=== PATIENT | female | born 1960 | race African-American/Black ===

== ENCOUNTER 2020-01-15 14:24 | Observation (INO) | payer MEDICAID ==
[~2020-01-15] VITALS: Ht 160 cm; Wt 108.9 kg
[2020-01-15 14:29] VITALS: BP 178/94
[2020-01-15] MEDS ORDERED: KLOR-CON M2020 MEQ PO (14:38)
[2020-01-15] MEDS ORDERED: HYDROCHLOROTHIA25 M2 PO (14:39)
[2020-01-15] MEDS ORDERED: AMLODIPINE BESY10 MG PO (14:39)
[2020-01-15] MEDS ORDERED: FUROSEMIDE 40 M40 M1 PO (14:39)
[2020-01-15 14:50] LABS: ABSOLUTE BASOPHILS 0.1 thou/uL (0.0-0.2); ABSOLUTE EOSINOPHILS 0.1 thou/uL (0.0-0.7); ABSOLUTE LYMPHOCYTES 2.9 thou/uL (0.8-5.3); ABSOLUTE MONOCYTES 1.1 thou/uL (0.0-1.2); ABSOLUTE NEUTROPHILS 3.9 thou/uL (1.6-8.1); BASOPHILS 1.2 %; EOSINOPHILS 1.7 %; HEMATOCRIT 40.8 % (37.0-47.0); HEMOGLOBIN 13.8 gm/dL (12.0-15.0); LYMPHOCYTES 34.9 %; MCHC 33.7 g/dL (28.0-37.0); MONOCYTES 13.9 %; MPV 9.4 fl. (7.2-11.1); NUCLEATED RBCS 0 /100WBC; PLATELET COUNT* 277 thou/uL (150-400); POLYS 48.3 %; RBC 4.59 mil/uL (4.20-5.00); RDW-CV 14.4 % (10.5-14.5); WBC 8.2 thou/uL (4.0-11.0)
[2020-01-15 14:55] LABS: CALCIUM 9.2 mg/dL (8.5-10.1); CREATININE 0.8 mg/dL (0.6-1.3); POTASSIUM 3.5 mmol/L (3.5-5.1)
[2020-01-15 14:58] LABS: APTT 22.1 Seconds (25.0-31.3); PROTIME 10.3 Seconds (9.20-11.50)
[2020-01-15 15:06] LABS: ALBUMIN 3.9 g/dL (3.4-5.0); MAGNESIUM 1.9 mg/dL (1.8-2.4); TOTAL BILIRUBIN 0.8 mg/dL (<0.1-1.0); TOTAL PROTEIN 7.9 g/dL (6.4-8.2)
[2020-01-15 19:45] VITALS: BP 170/80
[2020-01-15] MEDS ORDERED: POTASSIUM CHLO20 ME2 PO (22:16)
[2020-01-15] MEDS ORDERED: NORVASC 2.5 MG2.5 M1 PO (22:19)
[2020-01-16] VITALS: BP 176/86
[2020-01-16 04:00] VITALS: BP 134/75
[2020-01-16 06:05] LABS: HEMATOCRIT 39.6 % (37.0-47.0); MCH 29.5 pg (26.0-34.0); MCHC 32.9 g/dL (28.0-37.0); MCV 89.5 fL (80.0-100.0); RBC 4.42 mil/uL (4.20-5.00); RDW-CV 14.5 % (10.5-14.5); WBC 6.6 thou/uL (4.0-11.0)
[2020-01-16 06:34] LABS: ALBUMIN 3.5 g/dL (3.4-5.0); ALKALINE PHOSPHATASE 75 U/L (46-116); ANION GAP 8 mmol/L (7-16); BUN 13 mg/dL (7-18); CALCIUM 8.8 mg/dL (8.5-10.1); CHLORIDE 105 mmol/L (98-107); CO2 29 mmol/L (21-32); CREATININE 0.7 mg/dL (0.6-1.3); GLUCOSE 91 mg/dL (70-99); POTASSIUM 3.3 mmol/L (3.5-5.1); SGOT 17 U/L (15-37); SGPT 16 U/L (30-65); SODIUM 142 mmol/L (136-145); TOTAL BILIRUBIN 1.1 mg/dL (<0.1-1.0); TOTAL PROTEIN 7.2 g/dL (6.4-8.2); TROPONIN-I LEVEL <0.06 ng/mL (<0.06)
--- NOTE | 2020-01-16 07:58 | EKG ---
[place] [address] ELECTROCARDIOGRAM REPORT Name: JONATHAN BORDEN Room: [address]R.#: [id number] Admission: 01/15/20 Attend Phys: Gonzalo Smith Discharge: Date of : 58 Date of Service: 01/15/20 1427 Report #: [id number] THIS REPORT FOR: //name// [facility] ED Test Date: 2020-01-15 Test Time: 14:27:30 Pat Name: JONATHAN BORDEN Department: Room: [facility] Gender: F International Organizer: TP : 1960 Requested By: Rambo Billy Order Number: [id number] MD: Jairon Medellin Measurements Intervals [place] Rate: 78 P: 45 MO: 221 QRS: 17 QRSD: 87 T: 152 QT: 407 QTc: 464 Interpretive Statements Sinus rhythm Prolonged MO interval Probable left atrial enlargement Abnormal R-wave progression, late transition Abnormal T, consider ischemia, lateral leads No previous ECG available for comparison Electronically Signed On 01-16-2020 7:58:24 CDT by Jairon Medellin [email or web address] <ELECTRONICALLY SIGNED> By: Jairon Medellin MD, FAC 01/16/20 0758 1427 1427 Jairon Medellin MD, [facility] /EPI
[2020-01-16 08:30] VITALS: BP 196/91
[2020-01-16] MEDS ORDERED: FUROSEMIDE 40 M40 M1 PO (09:28)
[2020-01-16] MEDS ORDERED: HYDROCHLOROTHIA25 M2 PO (09:28)
[2020-01-16] MEDS ORDERED: POTASSIUM CHLO20 ME2 PO (09:28)
[2020-01-16] MEDS ORDERED: LISINOPRIL5 MG PO (09:28)
[2020-01-16] MEDS ORDERED: ASPIR 8181 MG PO (09:28)
[2020-01-16 10:17] LABS: CHOLESTEROL 153 mg/dL (<200); HDL CHOLESTEROL 41 mg/dL (>40); LDL CHOLESTEROL 94 mg/dL (<100); TC:HDL 3.7 Ratio (Not establshd); TRIGLYCERIDE 94 mg/dL (<150); VLDL 19 mg/dL (<40)
[2020-01-16 10:22] LABS: SERUM ASSESSMENT Clear
--- NOTE | 2020-01-16 11:42 | EKG ---
[place] [address] ELECTROCARDIOGRAM REPORT Name: JONATHAN BORDEN Room: [address]#: [id number] Admission: 01/15/20 Attend Phys: Gonzalo Smith Discharge: Date of : 58 Date of Service: 01/16/2031 Report #: [id number] THIS REPORT FOR: //name// [facility] Test Date: 2020-01-16 Test Time: 08:31:01 Pat Name: JONATHAN BORDEN Department: Room: [facility] Gender: F Core Setter: DIMPLE : 1960 Requested By: Gonzalo Smith Order Number: [id number] Reading MD: Jairon Medellin Measurements Intervals [place] Rate: 62 P: 48 IA: 227 QRS: 6 QRSD: 88 T: 165 QT: 439 QTc: 446 Interpretive Statements Sinus rhythm Prolonged IA interval Probable left atrial enlargement LVH with secondary repolarization abnormality Compared to ECG 01/15/2020 14:27:30 Left ventricular hypertrophy now present Electronically Signed On 01-16-2020 11:42:45 CDT by Jairon Medellin [email or web address] <ELECTRONICALLY SIGNED> By: Jairon Medellin MD, [facility] 01/16/20 1142 0 0 Jairon Medellin MD, [facility] /EPI
[2020-01-16 11:49] VITALS: BP 154/77
--- NOTE | 2020-01-16 12:09 | 2DMMODE ---
[place] [address] 2 D/M-MODE ECHOCARDIOGRAM Name: JONATHAN BORDEN Room: [address] MManojRManoj#: [id number] Admission: 01/15/20 Attend Phys: Gonzalo Smith Discharge: Date of : 58 Date of Service: 01/16/20 1209 Report #: [id number] THIS REPORT FOR: cc: Bing Frederick Mischelle RNP Blick, David R. MD [facility] ~ APPROVED REPORT Study performed: 01/16/2020 10:13:39 EXAM: Comprehensive 2D, Doppler, and color-flow Echocardiogram Patient Location: Bedside BSA: 2.10 HR: 60 bpm BP: 134/75 mmHg Other Information Study Quality: Technically Limited Indications Dyspnea Chest Pain 2D Dimensions IVSd: 13.43 (7-11mm) LVOT Diam: 19.33 (18-24mm) LVDd: 49.24 mm PWd: 14.22 (7-11mm) Ascending Ao: 33.40 (22-36mm) LVDs: 32.18 (25-40mm) Aortic Root: 29.38 mm Volumes Left Atrial Volume (Systole) LA ESV Index: 24.90 mL/m2 Aortic Valve AoV Peak Bud.: 1.86 m/s AO Peak Gr.: 13.81 mmHg LVOT Max P.59 mmHg AO Mean Gr.: 7.78 mmHg LVOT Mean P.57 mmHg LVOT Max V: 1.70 m/s AO V2 VTI: 33.42 cm LVOT Mean V: 1.08 m/s SLOAN (VTI): 3.07 cm2 LVOT V1 VTI: 34.93 [place] [address] 2 D/M-MODE ECHOCARDIOGRAM Name: JONATHAN BORDEN Room: [address] Mauricio MayesRManoj#: [id number] Admission: 01/15/20 Attend Phys: Gonzalo Smith Discharge: Date of : 58 Date of Service: 01/16/20 1209 Report #: [id number] E/A Ratio: 0.98 MV Decel. Time: 103.60 ms MV E Max Bud.: 0.86 m/s MV PHT: 30.04 ms MVA (PHT): 7.32 cm2 TDI E/Lateral E': 17.20 E/Medial E': 5.06 Medial E' Bud.: 0.17 m/s Lateral E' Bud.: 0.05 m/s Pulmonary Valve PV Peak Bud.: 1.14 m/s PV Peak Gr.: 5.22 mmHg Tricuspid Valve RAP Estimate: 5.00 mmHg TR Peak Gr.: 12.05 mmHg RVSP: 17.05 mmHg PA Pressure: 17.05 mmHg Left Ventricle The left ventricle is normal size. There is normal LV segmental wall motion. Mild concentric left ventricular hypertrophy. Left ventricular systolic function is normal. The left ventricular ejection fraction is within the normal range. LVEF is 70%. Grade I - abnormal relaxation pattern. Right Ventricle The right ventricle is normal size. The right ventricular systolic function is normal. Atria The left atrium size is normal. The right atrium size is normal. Aortic Valve The aortic valve is not well visualized. No aortic regurgitation is present. There is no aortic valvular stenosis. Mitral Valve The mitral valve is normal in structure. There is trace mitral valve regurgitation noted. No evidence of mitral valve stenosis. Tricuspid Valve The tricuspid valve is normal in structure. [place] [address] 2 D/M-MODE ECHOCARDIOGRAM Name: JONATHAN BORDEN Room: [address]#: [id number] Admission: 01/15/20 Attend Phys: Gonzalo Smith Discharge: Date of : 58 Date of Service: 01/16/20 1209 Report #: [id number] Pulmonic Valve Pulmonic valve is not well visualized. There is no pulmonic valvular regurgitation. Great Vessels The aortic root is normal in size. IVC is normal in size and collapses >50% with inspiration. Pericardium There is no pericardial effusion. <Conclusion> Mild concentric left ventricular hypertrophy. LVEF is 70%. <ELECTRONICALLY SIGNED> By: Jairon Medellin MD, FACC 01/16/201208 08 08 Jairon Medellin MD, FACC /INF
[2020-01-16] MEDS ORDERED: ALBUTEROL2.5 MG/0.1 INH (12:17)
[2020-01-16 16:04] VITALS: BP 154/77
[2020-01-16 17:10] VITALS: BP 139/81
== END 2020-01-16 18:57 | disposition home or self-care (01) ==
LOC: EDBD 14:24 → M.ERS 14:24 → M.TBA-ER 15:37 → M.2W 19:52
PROVIDERS: Emergency Medicine Emergency Medical Services; Registered Nurse; ADMIT Internal Medicine; ATTEND Internal Medicine
DX: J98.11 Atelectasis (principal); R60.9 Edema, unspecified; I10 Essential (primary) hypertension; R07.89 Other chest pain; E87.6 Hypokalemia; F17.210 Nicotine dependence, cigarettes, uncomplicated; E66.9 Obesity, unspecified; Z68.41 Body mass index [BMI] 40.0-44.9, adult; Z79.899 Other long term (current) drug therapy; Z20.828 Contact with and (suspected) exposure to other viral communicable diseases